=== PATIENT | female | born 1965 | race Caucasian/White ===

== ENCOUNTER 2024-09-30 19:08 | Emergency (ER) | payer OTHER ==
[~2024-09-30] VITALS: Ht 162.6 cm; Wt 73.0 kg
[2024-09-30 19:11] VITALS: O2SAT 98
[2024-09-30 19:42] VITALS: TEMP 36.6
[2024-09-30] MEDS: OXYCODONE HCL/ACETAMINOPHEN 5/325MG TABLET PO STA (20:09)
[2024-09-30] MEDS ORDERED: OXYC-100 MT (20:46)
[2024-09-30] MEDS ORDERED: IBUP-2029 MT (20:46)
[2024-09-30] MEDS: IBUPROFEN 600MG TABLET PO ONE (20:51)
[2024-09-30 21:05] VITALS: BP 138/72; PULSE 73; RESP 12; O2SAT 100
== END 2024-09-30 21:07 | disposition home or self-care (01) ==
LOC: ER 19:08
DX: S69.81XA Other specified injuries of right wrist, hand and finger(s), initial encounter (principal); W19.XXXA Unspecified fall, initial encounter; Y93.89 Activity, other specified; Y92.89 Other specified places as the place of occurrence of the external cause; Y99.8 Other external cause status
CPT/HCPCS: 73110; 99285